=== PATIENT | female | born 1975 | race Caucasian/White ===

== ENCOUNTER 2016-08-18 14:00 | Emergency (ER) | payer SELFPAY ==
--- NOTE | 2016-08-18 16:58 | Emergency Department Report ---
ED Fall HPI - General Chief Complaint: Fall Stated Complaint: FALL Time Seen by Provider: 08/18/16 16:37 Source: patient Mode of arrival: Ambulatory - History of Present Illness Initial Comments: Patient comes into the ER today with complaints of left leg pain, lower back pain, neck pain after slipping and falling while at work today. Patient states that there is something in the floor that caused her to slip and she landed on the left side of her body. Patient denies any loss of consciousness or bleeding. Patient states that this happened at approximately noon today which was approximately 5 hours prior to my evaluation. Patient states that the pain is getting worse with time. Patient states that she does have a small abrasion to the back side of her left elbow. Patient was unable to keep working and has not had anything for the pain. MD Complaint: fall -: Sudden - Related Data Previous Rx's Medication Instructions Recorded Last Taken Type Cyclobenzaprine HCl [Flexeril 5 MG 5 mg PO TID #15 tab 08/18/16 Unknown Rx TAB] Naproxen [Naprosyn TAB] 500 mg PO BID #20 tablet 08/18/16 Unknown Rx traMADol [Ultram 50 MG tab] 50 mg PO Q6HR PRN #20 tablet 08/18/16 Unknown Rx Allergies Allergy/AdvReac Type Severity Reaction Status Date / Time No Known Allergies Allergy Unverified 08/18/16 14:26 ED Review of Systems ROS: Stated complaint: FALL Other details as noted in HPI Constitutional: denies: chills, fever Eyes: denies: eye pain, eye discharge, vision change ENT: denies: ear pain, throat pain Respiratory: denies: cough, shortness of breath, wheezing Cardiovascular: denies: chest pain, palpitations Endocrine: no symptoms reported Gastrointestinal: denies: abdominal pain, nausea, vomiting, diarrhea Genitourinary: denies: urgency, dysuria, discharge Musculoskeletal: back pain, arthralgia, myalgia. denies: joint swelling Skin: denies: rash, lesions Neurological: denies: headache, weakness, numbness, paresthesias, confusion, vertigo Psychiatric: denies: anxiety, depression Hematological/Lymphatic: denies: easy bleeding, easy bruising ED Past Medical Hx - Past Medical History Previous Medical History?: No - Surgical History Past Surgical History?: Yes Additional Surgical History: Endometrial fibroids removal - Social History Smoking Status: Never Smoker Substance Use Type: Non Opiate Pain - Medications Home Medications: Home Medications Medication Instructions Recorded Confirmed Last Taken Type Cyclobenzaprine HCl [Flexeril 5 MG 5 mg PO TID #15 tab 08/18/16 Unknown Rx TAB] Naproxen [Naprosyn TAB] 500 mg PO BID #20 tablet 08/18/16 Unknown Rx traMADol [Ultram 50 MG tab] 50 mg PO Q6HR PRN #20 tablet 08/18/16 Unknown Rx ED Physical Exam - General Limitations: No Limitations General appearance: alert, in no apparent distress - Head Head exam: Present: atraumatic, normocephalic, normal inspection - Eye Eye exam: Present: normal appearance, PERRL, EOMI. Absent: periorbital swelling , periorbital tenderness - ENT ENT exam: Present: mucous membranes moist - Neck Neck exam: Present: normal inspection, tenderness (bilateral posterior neck tenderness and muscle tissue. No pinpoint vertebral body tenderness.), full ROM - Respiratory Respiratory exam: Present: normal lung sounds bilaterally. Absent: respiratory distress, decreased breath sounds - Cardiovascular Cardiovascular Exam: Present: regular rate, normal rhythm. Absent: systolic murmur, diastolic murmur, rubs, gallop - GI/Abdominal GI/Abdominal exam: Present: soft, normal bowel sounds. Absent: tenderness - Extremities Exam Extremities exam: Present: normal inspection, full ROM (Limited range of motion of left hip secondary to pain.), tenderness (left lateral and posterior hip tenderness, left lateral femur tenderness), normal capillary refill, other ( superficial abrasion noted to left posterior elbow, no bone tenderness noted to exam of the left elbow. Full range of motion of left elbow.). Absent: pedal edema, joint swelling, calf tenderness - Back Exam Back exam: Present: normal inspection, tenderness (left greater than right lumbar tenderness as well as left SI joint tenderness), paraspinal tenderness, vertebral tenderness (lumbar). Absent: full ROM (Limited range of motion of all directions secondary to pain), CVA tenderness (R), CVA tenderness (L) - Neurological Exam Neurological exam: Present: alert, oriented X3, CN II-XII intact, reflexes normal. Absent: motor sensory deficit - Psychiatric Psychiatric exam: Present: normal affect, normal mood - Skin Skin exam: Present: warm, dry, intact, normal color. Absent: rash ED Course Vital Signs 08/18/16 14:26 Temperature 98.2 F Pulse Rate 65 Respiratory 18 Rate Blood Pressure 133/95 O2 Sat by Pulse 99 Oximetry ED Medical Decision Making - Radiology Data Radiology results: image reviewed interpreted by me: X-ray C-spine: No acute bone pathology, no fracture, no loss of disc space, no anterior soft tissue swelling. X-ray L-spine: No loss of disc space, no acute fracture, slight malrotation to the left concerning for muscle spasm, slight L5-S1 anterior spondylolisthesis. X-ray left femur: No acute bone pathology, no fracture, no dislocation. - Medical Decision Making Patient is nontoxic and hemodynamically stable. X-ray imaging ordered and reviewed and discussed with the patient room. I believe patient's symptoms are more consistent with soft tissue injury. Patient states that she does not believe they have any light duty at work. I'll start patient on some medications appropriately and encourage patient to be sedentary with light duty over the next few days. Patient is in agreement with treatment plan patient is stable for discharge. Critical care attestation.: If time is entered above; I have spent that time in minutes in the direct care of this critically ill patient, excluding procedure time. ED Disposition Clinical Impression: Fall with injury, Low back pain, Contusion of left leg, Neck pain Disposition: - TO HOME OR SELFCARE Is pt being admited?: No Does the pt Need Aspirin: No Condition: Good Instructions: Contusion in Adults (ED), Low Back Strain (ED), Acute Low Back Pain (ED), Cervical Spine Strain (ED) Prescriptions: Cyclobenzaprine HCl [Flexeril 5 MG TAB] 5 mg PO TID #15 tab Naproxen [Naprosyn TAB] 500 mg PO BID #20 tablet traMADol [Ultram 50 MG tab] 50 mg PO Q6HR PRN #20 tablet PRN Reason: Pain Referrals: PRIMARY CARE, [Primary Care Provider] - 3-5 Days LISA MULLINS MD [Staff Physician] - 3-5 Days Forms: Work/School Release Form(ED) Time of Disposition: 18:47
[2016-08-18 19:07] VITALS: BP 161/90
--- NOTE | 2016-08-19 07:31 | XRay Report ---
Left femur 2 views: History: Leg pain. Findings: No fracture, periosteal reaction lytic lesion. No soft tissue calcification. Impression: Essentially negative left femur.
--- NOTE | 2016-08-19 07:32 | XRay Report ---
Cervical spine 3 views: History: Post fall neck pain. Findings: Normal height of vertebral bodies and intervertebral disc. Normal articular surfaces. No fracture. Normal prevertebral soft tissue. Impression: Essentially negative cervical spine.
--- NOTE | 2016-08-19 07:33 | XRay Report ---
Lumbar spine 3 views: History: Fall post fall back pain. Findings: Lowest level is considered L5-S1. There is mild anterolisthesis noted of L4 on L5 probably due to degenerative changes as seen in the adjacent facet joints. No definite evidence of acute fracture. No soft tissue calcification. Mild degenerative changes L4-L5 and L5-S1. Impression: Findings as detailed above.
== END 2016-08-18 19:07 | disposition home or self-care (01) ==
LOC: ED 14:00
DX: S70.12XA Contusion of left thigh, initial encounter (principal); M54.2 Cervicalgia; M54.5 Low back pain; W01.0XXA Fall on same level from slipping, tripping and stumbling without subsequent striking against object, initial encounter; Y93.89 Activity, other specified; Y99.8 Other external cause status; Y92.89 Other specified places as the place of occurrence of the external cause
CPT/HCPCS: 72040; 72100; 99283